=== PATIENT | female | born 1990 | race Hispanic/Latino ===

== ENCOUNTER → 2017-08-23 | Outpatient (CLI) | payer MEDICAID | LOC: LAB.O 08:25 | PROVIDERS: ATTEND Obstetrics & Gynecology | DX: Z34.82 Encounter for supervision of other normal pregnancy, second trimester (principal); Z3A.15 15 weeks gestation of pregnancy ==

== ENCOUNTER → 2017-09-29 | Outpatient (CLI) | payer MEDICAID | LOC: LAB.O 08:12 | PROVIDERS: ATTEND Obstetrics & Gynecology | DX: Z34.82 Encounter for supervision of other normal pregnancy, second trimester (principal); Z3A.24 24 weeks gestation of pregnancy ==

== ENCOUNTER 2018-12-15 20:44 | Emergency (ER) | payer SELFPAY ==
--- NOTE | 2018-12-15 21:04 | ED.PDOC ---
History of Present Illness - General Chief Complaint: Abdominal Pain Time Seen by Provider: 12/15/18 20:53 Information Source: patient Exam Limitations: no limitations - History of Present Illness Initial Comments: SHE ATE A "TORTA" EARLIER TODAY AND AFTERWARDS SHE STARTED WITH SEVERE ABDOMINAL PAIN AT THE LEVEL OF THE EPIGASTRIC REGION AND THE RUQ. THE PAIN RADIATED TO THE CHEST AND THE BACK. SHE RATED THE PAIN AT 10/10 AND NOW AT 8/10. I HAVE OFFERED PAIN MEDS BUT WILL WAIT. SHE VOICES THAT THIS PAIN HAS NEVER VISITED HER BEFORE. Abdominal Pain Onset Location: RUQ, epigastric Pain Radiation: chest, back Quality: moderate Review of Systems - Review of Systems Constitutional: States: no symptoms reported EENTM: States: no symptoms reported Respiratory: States: no symptoms reported Cardiology: States: no symptoms reported Gastrointestinal/Abdominal: States: abdominal pain Musculoskeletal: States: no symptoms reported Skin: States: no symptoms reported Neurological: States: no symptoms reported Endocrine: States: no symptoms reported Family Medical History - Family History Mother Family History: Unknown Physical Exam - Physical Exam General Appearance: Alert, Well Developed, Well Groomed, Other - moderate distress Eyes, Ears, Nose, Throat Exam: PERRL/EOMI Neck: non-tender Respiratory: chest non-tender Cardiovascular/Chest: normal peripheral pulses Gastrointestinal/Abdominal: other - eoigastric and ruq pain on palpation, no masses, no guarding and no rebound tenderness Rectal Exam: deferred Back Exam: normal inspection Lymphatic: no adenopathy Progress - Progress Progress: 12/15/18 22:17 ct abdomen is negative for acute process. THE PATIENT IS PAIN-FREE. - Results/Orders Results/Orders: 12/15/18 21:07 Hold Metformin x 48Hrs [id number] Laboratory Results WBC 7.2 K/mm3 (4.8-10.8) 12/15/18 21:04 RBC 4.59 M/mm3 (4.20-5.40) 12/15/18 21:04 Hgb 12.9 gm/dL (12.0-16.0) 12/15/18 21:04 Hct 39.2 % (36.0-47.0) 12/15/18 21:04 MCV 85.5 fl (81.0-99.0) 12/15/18 21:04 MCH 28.1 pg (27.0-31.0) 12/15/18 21:04 MCHC 32.9 g/dL (33.0-37.0) L 12/15/18 21:04 RDW 16.4 % (11.5-14.5) H 12/15/18 21:04 Plt Count 232 K/mm3 (130-400) 12/15/18 21:04 MPV 8.7 fl (7.40-10.4) 12/15/18 21:04 Absolute Neuts (auto) 4.80 K/uL (1.8-6.8) 12/15/18 21:04 Absolute Lymphs (auto) 1.80 K/uL (1.0-3.4) 12/15/18 21:04 Absolute Monos (auto) 0.40 K/uL (0.2-0.8) 12/15/18 21:04 Absolute Eos (auto) 0.20 K/uL (0.0-0.4) 12/15/18 21:04 Absolute Basos (auto) 0.00 K/uL (0.0-0.1) 12/15/18 21:04 Neutrophils % 66.5 % (42.0-78.0) 12/15/18 21:04 Lymphocytes % 24.5 % (20.0-50.0) 12/15/18 21:04 Monocytes % 5.7 % (2.0-9.0) 12/15/18 21:04 Eosinophils % 2.7 % (1.0-5.0) 12/15/18 21:04 Basophils % 0.6 % (0.0-2.0) 12/15/18 21:04 Sodium 138 mmol/L (135-145) 12/15/18 21:04 Potassium 3.0 mmol/L (3.6-5.0) L 12/15/18 21:04 Chloride 108 mmol/L (101-111) 12/15/18 21:04 Carbon Dioxide 22 mmol/L (21-31) 12/15/18 21:04 Anion Gap 11.0 (12-18) L 12/15/18 21:04 BUN 9 mg/dL (7-18) 12/15/18 21:04 Creatinine 0.78 mg/dL (0.6-1.3) 12/15/18 21:04 BUN/Creatinine Ratio 11.5 (10-20) 12/15/18 21:04 Random Glucose 95 mg/dL (70-105) 12/15/18 21:04 Serum Osmolality 274.2 mOsm/L (275-295) L 12/15/18 21:04 Calcium 8.7 mg/dL (8.4-10.2) 12/15/18 21:04 Total Bilirubin 0.5 mg/dL (0.2-1.0) 12/15/18 21:04 AST 24 IU/L (10-42) 12/15/18 21:04 ALT 22 IU/L (10-60) 12/15/18 21:04 Alkaline Phosphatase 82 IU/L (42-121) 12/15/18 21:04 Serum Total Protein 7.1 gm/dL (6.4-8.2) 12/15/18 21:04 Albumin 3.7 g/dl (3.2-5.5) 12/15/18 21:04 Globulin 3.4 gm/dL (2.3-3.5) 12/15/18 21:04 Albumin/Globulin Ratio 1.1 (1.1-1.9) 12/15/18 21:04 Lipase 25 U/L (22-51) 12/15/18 21:04 Serum HCG, Qual Negative (NEGATIVE) 12/15/18 21:04 Urine Color Yellow (Yellow) 12/15/18 21:04 Urine Appearance Clear (Clear) 12/15/18 21:04 Urine pH 6.5 (4.5-7.8) 12/15/18 21:04 Ur Specific [place] 1.010 (1.005-1.030) 12/15/18 21:04 Urine Protein Negative mg/dL 12/15/18 21:04 Urine Glucose (UA) Negative mg/dL (Negative) 12/15/18 21:04 Urine Ketones Negative mg/dL (NEGATIVE) 12/15/18 21:04 Urine Blood Negative (Negative) 12/15/18 21:04 Urine Nitrite Negative 12/15/18 21:04 Urine Bilirubin Negative (NEGATIVE) 12/15/18 21:04 Urine Urobilinogen 0.2 mg/dL (0.2-1.0) 12/15/18 21:04 Ur Leukocyte Esterase Trace (Negative) H 12/15/18 21:04 Urine RBC 0-1 /hpf 12/15/18 21:04 Urine WBC 5-10 /hpf H 12/15/18 21:04 Ur Epithelial Cells 1-3 /hpf 12/15/18 21:04 Urine Bacteria 1+ 12/15/18 21:04 Departure - Departure Clinical Impression: Abdominal pain Qualifiers: Abdominal location: right upper quadrant Qualified Code(s): R10.11 - Right upper quadrant pain Time of Disposition: 22:18 Disposition: Discharge to Home or Self Care Departure Forms: ED Discharge - Pt. Copy, Patient Portal Self Enrollment Instructions: DI for Abdominal Pain-Adult Diet: resume usual diet Prescriptions: Lansoprazole [Prevacid] 30 mg PO DAILY #30 cap Home Medications: Ambulatory Orders Lansoprazole [Prevacid] 30 mg PO DAILY #30 cap 12/15/18 Additional Instructions: FOLLOW UP WITH YOUR PCP. AVOID GREASY AND SPICY MEALS. YOU MIGHT NEED A HIDA SCAN AND A GALLBLADDER SONOGRAM TO FURTHER EVALUATE YOUR PAIN
[2018-12-15 21:11] VITALS: TEMP 99.4
--- NOTE | 2018-12-15 22:01 | CT ---
EXAM: CT Abdomen and Pelvis With Intravenous Contrast CLINICAL HISTORY: The patient is 28 years old and is Female; RUQ AND EPIGASTRIC PAIN TECHNIQUE: Axial computed tomography images of the abdomen and pelvis with intravenous contrast. Sagittal and coronal reformatted images were created and reviewed. This CT exam was performed using one or more of the following dose reduction techniques: automated exposure control, adjustment of the mA and/or kV according to patient size, and/or use of iterative reconstruction technique. COMPARISON: No relevant prior studies available. FINDINGS: LUNG BASES: Unremarkable. No mass. No consolidation. ABDOMEN: LIVER: There is a diffuse decrease in hepatic parenchymal density, consistent with fatty infiltration. GALLBLADDER AND BILE DUCTS: No calcified stones. No ductal dilation. PANCREAS: No ductal dilation. No mass. SPLEEN: Unremarkable. ADRENALS: Unremarkable. No mass. KIDNEYS AND URETERS: Unremarkable. No solid mass. No hydronephrosis. STOMACH AND BOWEL: The stomach is distended with food contents. The small bowel is normal in caliber. Stool is present throughout colon. There is no mucosal thickening or evidence of bowel obstruction. PELVIS: APPENDIX: The appendix is normal in caliber without surrounding inflammation. BLADDER: The bladder is well distended. REPRODUCTIVE: Unremarkable as visualized. ABDOMEN and PELVIS: INTRAPERITONEAL SPACE: Unremarkable. No free air. No significant fluid collection. BONES/JOINTS: No acute fracture. SOFT TISSUES: The soft tissues are normal. VASCULATURE: Unremarkable. No abdominal aortic aneurysm. LYMPH NODES: Unremarkable. No enlarged lymph nodes. IMPRESSION: No acute findings on this contrasted CT of the abdomen and pelvis to explain the patient's symptoms. Electronically signed by: Whitney Morel MD 12/15/2018 9:59 PM CDT
[2018-12-15] MEDS ORDERED: MORPHINE SULFATE INJ 10 MG/ML VIAL ONE (22:26)
[2018-12-15] MEDS ORDERED: ONDANSETRON INJ 4 MG/2 ML VIAL ONE (22:26)
[2018-12-15] MEDS ORDERED: ONDANSETRON INJ 4 MG/2 ML VIAL IV ONE (22:27)
[2018-12-15] MEDS ORDERED: MORPHINE SULFATE INJ 10 MG/ML VIAL IV ONE (22:27)
[2018-12-15 22:39] VITALS: O2SAT 99
[2018-12-16 00:32] VITALS: BP 122/78
== END 2018-12-15 23:30 | disposition home or self-care (01) ==
LOC: ER 20:44
DX: R10.11 Right upper quadrant pain (principal)
CPT/HCPCS: 36415; 74177; 80053; 81001; 83690; 84703; 85025; J2270; J2405